=== PATIENT | male | born 1990 | race Caucasian/White ===

== ENCOUNTER 2021-05-23 11:06 | Emergency (ER) | payer OTHER ==
[~2021-05-23] VITALS: Ht 157.5 cm; Wt 70.0 kg
[2021-05-23 12:52] VITALS: BP 128/75
== END 2021-05-23 12:54 | disposition home or self-care (01) ==
LOC: ER 11:06
DX: R06.00 Dyspnea, unspecified (principal); F41.9 Anxiety disorder, unspecified
CPT/HCPCS: 71045; 99283

== ENCOUNTER 2021-09-17 15:52 | Emergency (ER) | payer OTHER ==
[~2021-09-17] VITALS: Ht 160 cm; Wt 73.0 kg
[2021-09-17] MEDS ORDERED: LOPE2CAP MT (19:02)
[2021-09-17 19:09] VITALS: BP 111/69
== END 2021-09-17 19:11 | disposition home or self-care (01) ==
LOC: ER 15:52
DX: A08.4 Viral intestinal infection, unspecified (principal); I49.9 Cardiac arrhythmia, unspecified
CPT/HCPCS: 93005; 99283

== ENCOUNTER 2022-03-05 14:21 | Emergency (ER) | payer MEDICAID, OTHER ==
[~2022-03-05] VITALS: Ht 157.5 cm; Wt 69.0 kg
[~2022-03-05 14:21] MED LIST: LOPE2CAP MT
[2022-03-05 14:50] VITALS: BP 123/68
== END 2022-03-05 16:55 | disposition left against medical advice (07) ==
LOC: ER 14:21
DX: Z53.21 Procedure and treatment not carried out due to patient leaving prior to being seen by health care provider (principal); F41.9 Anxiety disorder, unspecified

== ENCOUNTER 2022-03-07 09:52 | Emergency (ER) | payer OTHER ==
[~2022-03-07] VITALS: Ht 157.5 cm; Wt 68.0 kg
[2022-03-07 09:57] VITALS: BP 117/64
[2022-03-07] MEDS ORDERED: IBUP-2029 MT (11:03)
== END 2022-03-07 11:19 | disposition home or self-care (01) ==
LOC: ER 09:52
DX: S63.502A Unspecified sprain of left wrist, initial encounter (principal); W18.30XA Fall on same level, unspecified, initial encounter; Y93.89 Activity, other specified; Y92.89 Other specified places as the place of occurrence of the external cause; Y99.8 Other external cause status
CPT/HCPCS: 73110; 99283

== ENCOUNTER 2024-06-09 16:52 | Emergency (ER) | payer SELFPAY ==
[~2024-06-09] VITALS: Ht 160 cm; Wt 74.8 kg
[~2024-06-09 16:52] MED LIST changes: +IBUP-2029 MT
[2024-06-09 17:00] VITALS: O2SAT 100
[2024-06-09 19:14] LABS: BASOPHILS % 0.2 % (0.0-2.0); EOSINOPHILS % 1.8 % (0.0-5.0); HEMATOCRIT. 43.8 % (42.0-52.0); LYMPHOCYTES % 27.5 % (20.0-50.0); MEAN CORPUSCULAR HEMOGLOBIN 32.6 pg (28.0-32.0); MEAN CORPUSCULAR HGB CONC 34.3 g/dL (31.0-37.0); MEAN PLATELET VOLUME 7.1 fl (7.4-10.4); MONOCYTES % 7.4 % (2.0-8.0); NEUTROPHILS % 63.1 % (40.0-76.0); PLATELET 309 x1000/uL (130-400); RED BLOOD CELL COUNT 4.61 mill/uL (4.7-6.1); RED CELL DISTRIBUTION WIDTH 14.8 % (11.6-14.6); WHITE BLOOD COUNT 7.8 x1000/uL (4.5-11.0)
[2024-06-09 19:23] LABS: CHLORIDE 106 mEq/L (98-107); POTASSIUM 4.1 mEq/L (3.5-5.1); SODIUM 142 mEq/L (136-145)
[2024-06-09 19:24] LABS: CALCIUM 9.7 mg/dL (8.7-10.4); CARBON DIOXIDE 28 mEq/L (21-32)
[2024-06-09 19:25] LABS: D-DIMER 0.39 mg/L FEU (<0.50); PROTHROMBIN TIME 10.8 sec (9.6-11.0)
[2024-06-09 19:29] LABS: GLUCOSE 94 mg/dL (70-105); UREA NITROGEN BLOOD 9 mg/dL (9-23)
[2024-06-09 19:31] LABS: ALANINE AMINOTRANSFERASE 219 IU/L (10-49); ALBUMIN 4.9 g/dL (3.2-4.8); ASPARTATE AMINOTRANSFERASE 85 IU/L (<34); BILIRUBIN DIRECT 0.1 mg/dL (<=3.0); BILIRUBIN TOTAL 0.4 mg/dL (0.1-1.0); PROTEIN TOTAL 8.1 g/dL (6.0-8.3)
[2024-06-09 19:32] LABS: TROPONIN I HIGH SENSITIVITY < 4 ng/L (3.0-53)
[2024-06-09 19:33] LABS: THYROID STIMULATING HORMONE 1.69 uIU/mL (0.55-4.78)
[2024-06-09 21:27] VITALS: BP 124/78; PULSE 70; RESP 20; TEMP 36.66960; O2SAT 99
[2024-06-09 21:51] LABS: CLARITY URINE CLEAR (CLEAR); COLOR URINE YELLOW (YELLOW); GLUCOSE URINE NEGATIVE (NEGATIVE); KETONES URINE NEGATIVE (NEGATIVE); LEUKOCYTE ESTERASE URINE NEGATIVE (NEGATIVE); NITRITE URINE NEGATIVE (NEGATIVE); OCCULT BLOOD URINE NEGATIVE (NEGATIVE); PH URINE 6.5 (4.5-8.0); PROTEIN URINE NEGATIVE (NEGATIVE); SPECIFIC GRAVITY URINE 1.021 (1.005-1.030); UROBILINOGEN URINE 0.2 E.U./dL (0.2-1.0)
== END 2024-06-09 21:31 | disposition home or self-care (01) ==
LOC: ER 16:52
DX: R00.2 Palpitations (principal); F41.9 Anxiety disorder, unspecified
CPT/HCPCS: 36415; 71045; 80048; 80076; 81003; 83880; 84443; 84484; 85025; 85379; 93005; 99285

== ENCOUNTER 2025-05-03 11:51 | Emergency (ER) | payer MEDICAID, OTHER ==
[~2025-05-03] VITALS: Ht 160 cm; Wt 79.0 kg
[~2025-05-03 11:51] MED LIST changes: +IBUP-1455 MT; -IBUP-2029 MT
[2025-05-03 12:03] VITALS: O2SAT 95
[2025-05-03] MEDS: METHOCARBAMOL 750MG TABLET PO STA (13:03)
[2025-05-03] MEDS: IBUPROFEN 400MG TABLET PO ONE (13:26)
[2025-05-03] MEDS ORDERED: IBUP-2028 MT (14:36)
[2025-05-03] MEDS ORDERED: METH-653 MT (14:36)
[2025-05-03] MEDS ORDERED: TOPUD PO (14:36)
[2025-05-03 14:58] VITALS: BP 143/77; PULSE 81; RESP 16; TEMP 36.7; O2SAT 98
== END 2025-05-03 15:18 | disposition home or self-care (01) ==
LOC: ER 11:51
DX: S53.401A Unspecified sprain of right elbow, initial encounter (principal); Z79.899 Other long term (current) drug therapy; V49.9XXA Car occupant (driver) (passenger) injured in unspecified traffic accident, initial encounter; Y93.89 Activity, other specified; Y92.410 Unspecified street and highway as the place of occurrence of the external cause; Y99.8 Other external cause status
CPT/HCPCS: 71045; 72100; 73080; 93005; 99284